=== PATIENT | male | born 1985 | race African-American/Black ===

== ENCOUNTER → 2018-09-09 | Emergency (ER) | payer SELFPAY ==
--- NOTE | 2018-09-09 14:05 | NUR ---
pt. refused to go for triage
--- NOTE | 2018-09-09 14:19 | NUR ---
pt. left premises
--- NOTE | 2018-09-09 14:21 | Emergency Room Report ---
History of Present Illness General Chief Complaint: To Be Triaged Present Illness HPI Patient allegedly came in to ED c/o chest pain. According to amf mechanic, he decided he did not want to be seen and left before triage. Medical Decision Making Diagnostic Impression: Primary Impression: Patient left before triage assessment Disposition: LEFT W/OUT BEING SEEN Condition: Unknown Referrals: NOT CHOSEN [facility]/,REFERRING (PCP) Brad Briggs MD Sep 09, 2018 14:21
== END | disposition left against medical advice (07) ==
LOC: EMR 14:16
DX: R07.9 Chest pain, unspecified (principal); Z53.21 Procedure and treatment not carried out due to patient leaving prior to being seen by health care provider

== ENCOUNTER 2018-12-29 00:41 | Emergency (ER) | payer MEDICAID ==
[~2018-12-29] VITALS: Ht 165.1 cm; Wt 72.6 kg
--- NOTE | 2018-12-29 01:26 | NUR ---
ED Nurse Note: Patient presents with complaints of chest pain and states that he is " suicidal homocidal". Patient reports psychiatric history but has no taken wellbutrin in 4 days.
[2018-12-29 01:29] VITALS: BP 141/74
--- NOTE | 2018-12-29 01:36 | Emergency Room Report ---
History of Present Illness General Chief Complaint: Chest Pain Source: Patient Present Illness HPI Disclaimer: Please note that this report is being documented using DRAGON technology. This can lead to erroneous entry secondary to incorrect interpretation by the dictating instrument. HPI: This is a 33-year-old male with a history of bipolar disorder, anxiety, hypertension and substance abuse presenting for evaluation of chest pain and suicidal ideation. The patient states that he is previously taking Wellbutrin for his psychiatric disorders was stopped 2 to 3 days ago. He has been using IV heroin and smoking methamphetamine as well as drinking alcohol today. He states he was having some nonspecific chest pain that is nonradiating and associated with mild shortness of breath for the past few hours. Denies any mucus production, nasal congestion, sore throat, back pain, abdominal pain, nausea, vomiting, diarrhea recent fevers or chills. He also states he has been feeling depressed reports "feeling suicidal." He has not attempted self-harm or taken any medications as an attempt to harm himself. States he has not tried to harm himself in the past. Does not follow regularly with psychiatry. Does not have a specific plan but when repeatedly asked he did mention hanging but again not specifics. Overall he appears calm and collected. PMH: Anxiety disorder, bipolar disorder, hypertension PSH: Denies Allergies: Denies Social Hx: Alcohol use, IV heroin use, crystal methamphetamine use Allergies: Coded Allergies: No Known Allergies (Unverified , 12/29/18) Nursing Documentation-PMH Hx Hypertension: Yes Hx Asthma: Yes History Of Psychiatric Problem: Yes - bipolar; anxiety Review of Systems All Other Systems: negative except mentioned in HPI Physical Exam Vital Signs Date Time Temp Pulse Resp B/P (MAP) Pulse Ox O2 Delivery O2 Flow Rate FiO2 12/29/18 01:00 98.2 100 16 141/74 (96) 94 Room Air General: Awake and alert, no acute distress HEENT: NC/AT. EOMI. Cardiovascular: RRR. S1 and S2 normal. No murmur appreciated Resp: Normal work of breathing. No cough, wheezing or crackles appreciated Abdomen: Abdomen is soft, nondistended. Nontender Skin: Intact. No abrasions, laceration or rash over the exposed skin. There is one injection scar on the left antecubital fossa with no evidence of erythema , deep space infection or other abnormality MSK: Normal tone and bulk. Moving all extremities. No obvious deformity. Neuro: Awake and alert. Calm and collected, answering questions appropriately. Somewhat avoidant gaze. Medical Decision Making Diagnostic Impression: Primary Impression: Eloped from emergency department Additional Impression: Methamphetamine abuse ER Course 33-year-old male history of polysubstance abuse and psychiatric illness presents for evaluation of chest pain in the setting of recent methamphetamine use as well as claiming suicidal ideation. He arrives with stable vital signs and is no acute distress. He is joking and laughing during my examination but states that he would like to maybe hang himself though he does not know how, when or where specifically. He has not attempted any self-harm and denies any intentional ingestions or intentional overdose to date. He does admit to drinking alcohol, using crystal meth and IV heroin earlier today. At this time it is difficult to assess how serious he is about these ideations given his recent reported drug use. We will start broad metabolic, infectious and tox work -up to determine the cause of his chest pain and reevaluate the patient for suicidality Laboratory Tests Test 12/29/18 01:55 12/29/18 02:33 White Blood Count 4.8 K/UL (4.8-10.8) Red Blood Count 4.48 M/UL (4.70-6.10) L Hemoglobin 14.0 G/DL (14.2-18.0) L Hematocrit 42.7 % (42.0-52.0) Mean Corpuscular Volume 95 FL (80-99) Mean Corpuscular Hemoglobin 31.1 PG (27.0-31.0) H Mean Corpuscular Hemoglobin Concent 32.7 G/DL (32.0-36.0) Red Cell Distribution Width 12.1 % (11.6-14.8) Platelet Count 281 K/UL (150-450) Mean Platelet Volume 9.0 FL (6.5-10.1) Neutrophils (%) (Auto) 34.8 % (45.0-75.0) L Lymphocytes (%) (Auto) 43.3 % (20.0-45.0) Monocytes (%) (Auto) 7.5 % (1.0-10.0) Eosinophils (%) (Auto) 12.5 % (0.0-3.0) H Basophils (%) (Auto) 1.9 % (0.0-2.0) Sodium Level 141 MMOL/L (136-145) Potassium Level 4.4 MMOL/L (3.5-5.1) Chloride Level 104 MMOL/L (98-107) Carbon Dioxide Level 28 MMOL/L (21-32) Anion Gap 9 mmol/L (5-15) Blood Urea Nitrogen 13 mg/dL (7-18) Creatinine 1.0 MG/DL (0.55-1.30) Estimate Glomerular Filtration Rate > 60 mL/min (>60) Glucose Level 117 MG/DL (74-106) H Calcium Level 8.6 MG/DL (8.5-10.1) Total Bilirubin 0.9 MG/DL (0.2-1.0) Aspartate Amino Transferase (AST) 32 U/L (15-37) Alanine Aminotransferase (ALT) 37 U/L (12-78) Alkaline Phosphatase 89 U/L (46-116) Troponin I 0.008 ng/mL (0.000-0.056) Total Protein 7.3 G/DL (6.4-8.2) Albumin 3.6 G/DL (3.4-5.0) Globulin 3.7 g/dL Albumin/Globulin Ratio 1.0 (1.0-2.7) Salicylates Level 1.6 ug/mL (2.8-20) L Acetaminophen Level < 2 MCG/ML (10-30) L Serum Alcohol < 3 mg/dL Urine Color Yellow Urine Appearance Clear Urine pH 6 (4.5-8.0) Urine Specific Leary 1.015 (1.005-1.035) Urine Protein 1+ (NEGATIVE) H Urine Glucose (UA) Negative (NEGATIVE) Urine Ketones Negative (NEGATIVE) Urine Blood Negative (NEGATIVE) Urine Nitrite Negative (NEGATIVE) Urine Bilirubin Negative (NEGATIVE) Urine Urobilinogen 8 MG/DL (0.0-1.0) H Urine Leukocyte Esterase 1+ (NEGATIVE) H Urine RBC 0-2 /HPF (0 - 0) H Urine WBC 2-4 /HPF (0 - 0) Urine Squamous Epithelial Cells Occasional /LPF Urine Bacteria Occasional /HPF (NONE) Urine Mucus Few /LPF (NONE/OCC) H Urine Opiates Screen Negative (NEGATIVE) Urine Barbiturates Screen Negative (NEGATIVE) Phencyclidine (PCP) Screen Negative (NEGATIVE) Urine Amphetamines Screen Positive (NEGATIVE) H Urine Benzodiazepines Screen Negative (NEGATIVE) Urine Cocaine Screen Negative (NEGATIVE) Urine Marijuana (THC) Screen Positive (NEGATIVE) H EKG Diagnostic Results EKG Time: 01:42 Rate: normal Rhythm: NSR ST Segments: no acute changes Other Impression Sinus rhythm, normal axis, normal intervals, no ST segment changes Rhythm Strip Diag. Results Rhythm Strip Time: 01:42 EP Interpretation: yes Rate: 70s Rhythm: NSR, no PVC's, no ectopy Chest X-Ray Diagnostic Results Chest X-Ray Diagnostic Results : Chest X-Ray Ordered: Yes # of Views/Limited/Complete: 1 View Indication: Chest Pain EP Interpretation: Yes Interpretation: no consolidation, no effusion, no pneumothorax Impression: No acute disease Electronically Signed by: Electronically signed by Dr. Neno Del Cid Reevaluation Time: 03:00 Last Vital Signs Date Time Temp Pulse Resp B/P (MAP) Pulse Ox O2 Delivery O2 Flow Rate FiO2 12/29/18 01:29 98.2 100 16 141/74 94 Room Air Reevaluation Impression Labs have returned largely within normal limits. He is tested positive for THC and methamphetamines which he admits to. Troponin is negative, EKG is unremarkable and nonischemic and chest x-ray shows no evidence of acute disease. We will try to arrange for psychiatric evaluation for the patient. Vital signs remained stable. He is talkative and jovial with staff. Eating and drinking comfortably 0337: Patient removed his IV and eloped from the emergency department. He was not interested in hearing his lab results. I was able to catch up with him in the parking lot and asked his about his SI statements to which he replied "I'm good now." A full psychiatric evaluation was not performed and I was not able to have a substantial conversation with the patient regarding his SI statements on arrival. Will notify [employer] for a wellness check and bring him back to the hospital for psychiatric evaluation. Disposition: ELOPED Condition: Stable Referrals: NOT CHOSEN JAS/,REFERRING (PCP) Neno Del Cid MD Dec 29, 2018 01:36
[2018-12-29 02:27] LABS: BASOPHILS % (AUTO) 1.9 % (0.0-2.0); EOSINOPHILS % (AUTO) 12.5 % (0.0-3.0); HEMATOCRIT 42.7 % (42.0-52.0); LYMPHOCYTES % (AUTO) 43.3 % (20.0-45.0); MEAN CORPUSCULAR VOLUME 95 FL (80-99); MONOCYTES % (AUTO) 7.5 % (1.0-10.0); NEUTROPHILS % (AUTO) 34.8 % (45.0-75.0); PLATELET COUNT 281 K/UL (150-450); RED BLOOD COUNT 4.48 M/UL (4.70-6.10); RED CELL DISTRIBUTION WIDTH 12.1 % (11.6-14.8); WHITE BLOOD COUNT 4.8 K/UL (4.8-10.8)
[2018-12-29 02:43] LABS: APPEARANCE,URINE CLEAR; BILIRUBIN, URINE NEGATIVE (NEGATIVE); GLUCOSE, URINE (UA) NEGATIVE (NEGATIVE); KETONES,URINE NEGATIVE (NEGATIVE); LEUKOCYTE ESTERASE ,URINE 1+ (NEGATIVE); NITRITE,URINE NEGATIVE (NEGATIVE); PH,URINE 6 (4.5-8.0); PROTEIN,URINE 1+ (NEGATIVE); UROBILINOGEN,URINE 8 MG/DL (0.0-1.0)
[2018-12-29 02:45] LABS: ANION GAP 9 mmol/L (5-15); BLOOD UREA NITROGEN 13 mg/dL (7-18); CALCIUM 8.6 MG/DL (8.5-10.1); CARBON DIOXIDE 28 MMOL/L (21-32); CHLORIDE 104 MMOL/L (98-107); POTASSIUM 4.4 MMOL/L (3.5-5.1); SODIUM 141 MMOL/L (136-145)
[2018-12-29 02:46] LABS: COLOR,URINE YELLOW
--- NOTE | 2018-12-29 02:50 | Diagnostic Imaging Report ---
EXAM: XR Chest, 1 View CLINICAL HISTORY: CP TECHNIQUE: Frontal view of the chest. COMPARISON: No relevant prior studies available. FINDINGS: Lungs: Unremarkable. No consolidation. Pleural space: Unremarkable. No pneumothorax. Heart: Unremarkable. No cardiomegaly. Mediastinum: Unremarkable. Bones joints: Unremarkable. IMPRESSION: Normal chest x-ray.
[2018-12-29 02:58] LABS: ALANINE AMINOTRANSFERASE 37 U/L (12-78); ALBUMIN 3.6 G/DL (3.4-5.0); ALKALINE PHOSPHATASE 89 U/L (46-116); ASPARTATE AMINO TRANSFERASE 32 U/L (15-37); BILIRUBIN,TOTAL 0.9 MG/DL (0.2-1.0)
--- NOTE | 2018-12-29 03:30 | NUR ---
ED Nurse Note: Patient removed IV and stated that "I don't need it" as an explanation. ERMD informed. Will continue to monitor.
--- NOTE | 2018-12-29 03:37 | NUR ---
AMA: Patietn refused to sign AMA FORM.
--- NOTE | 2018-12-29 03:38 | NUR ---
ELOPEMENT: Patient decided that he did not need any services and he left. Patient refused to speak with ERMD and departed from the facility.
[2018-12-29 03:39] VITALS: BP 141/74
--- NOTE | 2018-12-31 16:52 | Cardiology Report ---
APPROVED REPORT EKG Measurement Heart [id number] Normal sinus rhythm Cannot rule out Anterior infarct, age undetermined Abnormal ECG
== END 2018-12-29 03:49 | disposition left against medical advice (07) ==
LOC: EMR 01:14
DX: F15.10 Other stimulant abuse, uncomplicated (principal); J45.909 Unspecified asthma, uncomplicated; I10 Essential (primary) hypertension; F31.9 Bipolar disorder, unspecified; F41.9 Anxiety disorder, unspecified
CPT/HCPCS: 36415; 71045; 80053; 80307; 81003; 84484; 85025; 93005; 96360; G0480; G0481; Z7502; 99284